=== PATIENT | female | born 2000 | race Hispanic/Latino ===

== ENCOUNTER 2020-03-07 11:52 | Emergency (ER) | payer OTHER ==
[~2020-03-07] VITALS: Ht 170.2 cm; Wt 122.5 kg
[2020-03-07] MEDS ORDERED: SODIUM CHLORIDE FLUSH 10 ML SYR INJ PRN (12:15)
--- NOTE | 2020-03-07 13:12 | NUR ---
UNABLE TO OBTAIN FHT AT THIS TIME, PT STATES THEY ALWAYS HAVE TROUBLE FINDING FHT, BABY IS MOVING AND VERY ACTIVE PER MOM. NAD DISTRESS TO MOM
--- NOTE | 2020-03-07 13:12 | Emergency Department Note ---
History of Present Illnes History of Present Illness Chief Complaint: abdominal cramps History of Present Illness This is a 19 year old female. 34 weeks . was doing well until 1 hour the pt had 30 minutes of abdominal cramps. no rupture of membranes/no vaginal fluid Historian: Patient Arrival Mode: Car History limited by: condition of the patient (normal) Media Services Director Required: No Onset (how long ago): hour(s) (1) Location: abdomen/pelvis Quality: cramps Radiation: Reports non-radiation Severity: moderate Onset quality: gradual Duration (how long): hour(s) (0.5) Timing of current episode: other Progression: resolved Chronicity: new Context: Denies recent illness, Denies recent surgery, Denies recent immobilization, Denies recent travel, Denies trauma/injury, Denies new medications, Denies hx of DVT/PE, Denies non-compliance w/ medications Relieving factors: none Exacerbating factors: none Associated symptoms: Reports denies other symptoms Treatments prior to arrival: none Past Medical/Family History Physician Review I have reviewed the patient's past medical and family history. Any updates have been documented here. Past Medical History Recent Fever: No Clinical Suspicion of Infectio: No New/Unexplained Change in Ment: No Past Medical History: None Past Surgical History: None Social History Smoking Cessation: Never Smoker Counseling Performed: No Alcohol Use: None Any Illegal Drug Use: No TB Exposure/Symptoms: No Physically hurt or threatened: No Family History Family history of heart diseas: No Other Any Pre-Existing Lines (PICC,: No Is patient up to date on immun: Yes Last Flu: UNK Last Pneumovax: UNK Review of Systems Review of Systems Constitutional: Reports no symptoms EENTM: Reports no symptoms Cardiovascular: Reports no symptoms Respiratory: Reports no symptoms Gastrointestinal: Reports as per HPI, Reports abdominal pain Genitourinary: Reports no symptoms Musculoskeletal: Reports no symptoms Integumentary: Reports no symptoms Neurological: Reports no symptoms Psychological: Reports no symptoms Endocrine: Reports no symptoms Hematological/Lymphatic: Reports no symptoms Physical Exam Related Data Allergies: Coded Allergies: No Known Allergies (Unverified , 03/07/20) Vital signs reviewed: Yes Physical Exam CONSTITUTIONAL Constitutional: Present well-developed, Present well-nourished HENT HENT: Present normocephalic, Present atraumatic, Present oropharynx clear/moist, Present nose normal HENT L/R: Present left ext ear normal, Present right ext ear normal EYES Eyes: Reports PERRL, Reports conjunctivae normal NECK Neck: Present ROM normal, Present supple PULMONARY Pulmonary: Present effort normal, Present breath sounds normal CARDIOVASCULAR Cardiovascular: Present regular rhythm, Present heart sounds normal, Present capillary refill normal, Present normal rate GASTROINTESTINAL Abdominal: Present soft, Present nontender, Present bowel sounds normal, Present other (gravid abdomen/ fht not capture which according to mom is normal. mom feels baby moving) GENITOURINARY Genitourinary: Present exam deferred SKIN Skin: Present warm, Present dry MUSCULOSKELETAL Musculoskeletal: Present ROM normal NEUROLOGICAL Neurological: Present alert, Present oriented x 3, Present no gross motor or sensory deficits PSYCHOLOGICAL Psychological: Present mood/affect normal, Present judgement normal Results Laboratory Lab results reviewed: Yes Laboratory comments nl cbc/bmp Assessment & Plan Medical Decision Making MDM spoke to dr serenity li (sr. director) at 1230hrs and accepts transfer of pt to [facility] to the labor and delivery unit Assessment & Plan Final Impression: (1) Acute abdominal pain (2) Third trimester Depart Disposition: DIS/[facility] ([facility] formally named [facility]) Medications in the ED Sodium Chloride 10 ml PRN PRN INJ IV SITE FLUSH; Start 03/07/20 at 12:15; Stop 04/06/20 at 12:14 B[facility] [place] Mar 07, 2020 13:12
--- NOTE | 2020-03-07 13:15 | NUR ---
DUE DATE IS March, PT STATES NO FLUID LEAKING AT THIS TIME FROM VAGINAL AREA
== END 2020-03-07 13:26 | disposition short-term general hospital (02) ==
LOC: FSED 11:52
DX: O26.93 Pregnancy related conditions, unspecified, third trimester (principal); R10.9 Unspecified abdominal pain
CPT/HCPCS: 80053; 81003; 85025; 99284